=== PATIENT | female | born 2000 | race Caucasian/White ===

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

== ENCOUNTER 2022-02-05 19:46 | Emergency (ER) | payer OTHER ==
[2022-02-05] MEDS ORDERED: predniSONE 20 MG TAB ONE (20:22)
[2022-02-05] MEDS ORDERED: hydrOXYzine 25 MG TAB ONE (20:22)
[2022-02-05] MEDS ORDERED: Famotidine 20 MG TAB ONE (20:22)
== END 2022-02-05 20:25 | disposition home or self-care (01) ==
LOC: BURERS 19:46
DX: L50.9 Urticaria, unspecified (principal)
CPT/HCPCS: 99282; J7512

== ENCOUNTER 2022-08-14 14:57 | Emergency (ER) | payer OTHER ==
[2022-08-14 15:32] LABS: Bilirubin Small (Negative); Blood, Urine Trace (Negative); Clarity Clear (Clear); Glucose, Urine (Dipstick) Negative (Negative); Ketone, Urine 80 mg/dL (Negative); Leukocyte Trace (Negative); Nitrite Negative (Negative); Protein, Urine (Dipstick) Negative (Neg-Trace); Specific Gravity, Urine 1.025 (1.005-1.030); pH, Urine 5.5 (5.0-9.0)
[2022-08-14 15:33] LABS: Pregnancy Test - Urine (BHCG) Negative (Negative); Pregu Control Background? CLEAR/WHITE (CLR/WHITE); Pregu Control Bar Appear? YES (CONTROL BAR); Specific Gravity 1.025 (1.002-1.036)
[2022-08-14 15:39] LABS: Bacteria/HPF 1+ HPF (None Seen); RBC/HPF 0-3 HPF (0-3)
[2022-08-14 15:41] LABS: Mucous/LPF Few LPF (<2+)
== END 2022-08-14 15:54 | disposition home or self-care (01) ==
LOC: BURERS 14:57
DX: N76.0 Acute vaginitis (principal)
CPT/HCPCS: 81003; 81015; 81025; 99283

== ENCOUNTER 2025-03-30 18:47 | Emergency (ER) | payer OTHER ==
[2025-03-30 19:16] LABS: Pregnancy Test - Urine (BHCG) Negative (Negative); Pregu Control Background? CLEAR/WHITE (CLR/WHITE); Pregu Control Bar Appear? YES (CONTROL BAR)
== END 2025-03-30 19:43 | disposition home or self-care (01) ==
LOC: BURERS 18:47
DX: J10.1 Influenza due to other identified influenza virus with other respiratory manifestations (principal); F17.290 Nicotine dependence, other tobacco product, uncomplicated
CPT/HCPCS: 81025; 87428; 99284; Q0162